=== PATIENT | male | born 1965 | race Hispanic/Latino ===

== ENCOUNTER 2017-10-08 20:15 | Emergency (ER) | payer SELFPAY ==
[~2017-10-08] VITALS: Ht 175.3 cm; Wt 84.0 kg
[~2017-10-08 20:15] MED LIST: ALKA-SELTZE2 PO; NEXIUM40 M1 PO
[2017-10-08 20:55] LABS: HEMATOCRIT 43.2 % (39.0-50.0); IMMATURE GRANULOCYTES 0.3 % (0.0-1.0); MEAN CELL VOLUME 90.9 fL CALC (80.0-100.0); MEAN CORPUSCULAR HGB 31.6 pG CALC (26.0-32.0); MEAN CORPUSCULAR HGB CONC 34.7 g/L CALC (32.0-36.0); NEUT# 3.37 thou/uL (1.82-7.42); RED BLOOD COUNT 4.75 mill/uL (4.70-6.10); RED CELL DISTRI WIDTH 12.8 % (11.5-15.5)
[2017-10-08 20:58] LABS: URINE BILIRUBIN - DIPSTICK NEGATIVE (NEGATIVE); URINE BLOOD DIPSTICK NEGATIVE (NEGATIVE); URINE GLUCOSE - DIPSTICK NEGATIVE (NEGATIVE); URINE KETONE NEGATIVE (NEGATIVE); URINE LEUK ESTERASE NEGATIVE (NEGATIVE); URINE NITRITE - DIPSTICK NEGATIVE (Negative); URINE PROTEIN - DIPSTICK NEGATIVE (NEG-TRACE); URINE SPECIFIC GRAVITY <=1.005; URINE UROBILINOGEN - DIPSTICK 0.2 E.U./dL (0.2)
[2017-10-08 20:59] LABS: URINE CLARITY CLEAR; URINE COLOR STRAW
[2017-10-08 21:01] LABS: BARBITURATES NEGATIVE (NEGATIVE); COCAINE NEGATIVE (NEGATIVE); METHADONE NEGATIVE (NEGATIVE); OXCYCODONE NEGATIVE (NEGATIVE); TETRAHYDROCANNABIONOL NEGATIVE (NEGATIVE); TRICYLIC ANTIDEPRESSANTS NEGATIVE (NEGATIVE)
[2017-10-08 21:07] LABS: ALBUMIN 4.6 g/dL (3.2-5.0); ALKALINE PHOSPHATASE 96 u/l (38-126); ANION GAP 17 (6-22 (CALC)); BILIRUBIN, TOTAL 0.4 mg/dL (0.0-1.4); BUN 15 mg/dL (9-20); BUN/CREATININE RATIO 20 (12-20 (CALC)); CARBON DIOXIDE 23 mmol/l (22-30); CHLORIDE 100 mmol/l (95-108); CREATININE 0.7 mg/dL (0.7-1.3); GFR > 60 ML/MIN (>=60 (CALC)); GFR FOR AFR.AMER. > 60 ML/MIN (>=60 (CALC)); POTASSIUM 3.6 mmol/l (3.5-5.1); SGOT/AST 35 u/l (17-59); SGPT/ALT 75 u/l (21-72); SODIUM 136 mmol/l (137-146); TOTAL PROTEIN 7.4 g/dL (6.3-8.2)
[2017-10-08 21:20] LABS: MYOGLOBIN 32 ng/mL (0 - 121)
[2017-10-08 22:53] VITALS: BP 120/73
== END 2017-10-08 22:52 | disposition home or self-care (01) | DRG 948 ==
LOC: ED 20:15
PROVIDERS: Emergency Medicine
DX: R53.1 Weakness (principal); F10.20 Alcohol dependence, uncomplicated; F17.210 Nicotine dependence, cigarettes, uncomplicated; R25.2 Cramp and spasm

== ENCOUNTER 2019-01-05 10:14 | Emergency (ER) | payer OTHER ==
[~2019-01-05] VITALS: Ht 175.3 cm; Wt 79.1 kg
[2019-01-05] MEDS ORDERED: NAPROSYN500 MG PO (11:16)
[2019-01-05] MEDS ORDERED: FLEXERIL PO (11:16)
[2019-01-05 11:19] VITALS: BP 144/92
== END 2019-01-05 11:27 | disposition home or self-care (01) | DRG 552 ==
LOC: ED 10:14
DX: S33.5XXA Sprain of ligaments of lumbar spine, initial encounter (principal); F17.210 Nicotine dependence, cigarettes, uncomplicated; W55.22XA Struck by cow, initial encounter; Y93.89 Activity, other specified; Y92.79 Other farm location as the place of occurrence of the external cause; Y99.0 Civilian activity done for income or pay

== ENCOUNTER 2020-08-25 07:31 | Day surgery (SDC) | payer SELFPAY ==
[~2020-08-25] VITALS: Ht 172.7 cm; Wt 77.1 kg
[~2020-08-25 07:31] MED LIST changes: +FLEXERIL PO; +LIPITOR40 M1 PO; +NAPROSYN500 MG PO; +OMEPRAZOLE DR20 MG PO
[2020-08-25 10:02] VITALS: BP 106/64
== END 2020-08-25 09:50 | disposition home or self-care (01) | DRG 392 ==
LOC: ENDO 07:31 → ORM 08:45 → ENDO 09:50
PROVIDERS: ATTEND Surgery
PROC: 0DJ08ZZ Inspection of Upper Intestinal Tract, Via Natural or Artificial Opening Endoscopic (ICD-10-PCS; principal; 2020-08-25)
PROC: 0DJD8ZZ Inspection of Lower Intestinal Tract, Via Natural or Artificial Opening Endoscopic (ICD-10-PCS; 2020-08-25)
DX: K21.9 Gastro-esophageal reflux disease without esophagitis (principal); K44.9 Diaphragmatic hernia without obstruction or gangrene; Z12.11 Encounter for screening for malignant neoplasm of colon; F17.210 Nicotine dependence, cigarettes, uncomplicated; Z80.0 Family history of malignant neoplasm of digestive organs; Z20.822 Contact with and (suspected) exposure to COVID-19